=== PATIENT | male | born 1990 | race African-American/Black ===

== ENCOUNTER 2018-08-30 17:02 | Emergency (ER) | payer SELFPAY ==
[~2018-08-30] VITALS: Ht 182.9 cm; Wt 100.2 kg
[2018-08-30 17:15] VITALS: BP 148/82
--- NOTE | 2018-08-30 18:12 | NUR ---
PATIENT AMBULATED TO ER BED 4
--- NOTE | 2018-08-30 18:17 | NUR ---
PATIENT PRESENTS TO ED WITH C/O R EAR IRRITATION, REPORTS FLUTTERING SOUNDS DENIES N/V/D; SKIN IS PINK/WARM/DRY; AAOX4 WITH EVEN AND STEADY GAIT; LUNGS CLEAR BL; HR EVEN AND REGULAR; PT DENIES ANY FEVER, CP, SOB, OR COUGH AT THIS TIME; DENIES PAIN, VSS; PATIENT POSITIONED FOR COMFORT; HOB ELEVATED; BEDRAILS UP X2; BED DOWN. ER MD MADE AWARE OF PT STATUS.
--- NOTE | 2018-08-30 18:23 | NUR ---
Patient being evaluated by physician at bedside.
--- NOTE | 2018-08-30 19:08 | NUR ---
REPORT GIVEN TO LOGISTICS/SHIPPER NURSE FOR CONTINUE OF CARE.
[2018-08-30 19:21] VITALS: BP 133/95
--- NOTE | 2018-08-30 19:21 | NUR ---
Patient discharged with v/s stable. Written and verbal after care instructions given and explained. Patient alert, oriented and verbalized understanding of instructions. Ambulatory with steady gait. All questions addressed prior to discharge. ID band removed. Patient advised to follow up with PMD. Rx of FLONASE NASAL SPRAY, IBUPROFEN given. Patient educated on indication of medication including possible reaction and side effects. Opportunity to ask questions provided and answered.
== END 2018-08-30 19:21 | disposition home or self-care (01) ==
LOC: MED 17:02
DX: R42 Dizziness and giddiness (principal); R51 Headache; H92.01 Otalgia, right ear
CPT/HCPCS: 99283